=== PATIENT | female | born 1995 ===

== ENCOUNTER 2017-12-15 09:53 | Inpatient (IN) | payer BC ==
[2017-12-15] MEDS ORDERED: Sodium Chloride 0.9% 1,000 ML IV STA ×2 (10:23→17:16)
[2017-12-15 10:53] LABS: BASO # 0.03 K/mm3 (0.0-2.0); BASO % 0.4 % (0.0-3.0); EOS # 0.1 (0.0-0.7); EOS % 0.9 % (1.5-5.0); GRAN # 3.89 (1.4-6.5); HEMOGLOBIN 13.3 g/dL (12.0-16.0); LYMPH # 2.6 (1.2-3.4); LYMPH % 37.5 % (22.0-35.0); MEAN CELL VOLUME 88.2 fl (80.0-105.0); MEAN CORPUSCULAR HEMOGLOBIN 30.9 pg (25.0-35.0); MEAN PLATELET VOLUME 9.7 fl (7.0-11.0); MONO # 0.4 (0.1-0.6); MONO % 5.2 % (1.0-6.0); RBC 4.31 10^6/uL (3.5-6.1); RED CELL DISTRIBUTION WIDTH 11.9 % (11.5-14.5); WHITE BLOOD COUNT 6.9 10^3/ul (4.5-11.0)
[2017-12-15 10:56] LABS: URINE BILIRUBIN NEGATIVE (NEGATIVE); URINE BLOOD NEGATIVE (NEGATIVE); URINE GLUCOSE (UA) NEGATIVE (NEGATIVE); URINE LEUKOCYTE ESTERASE NEGATIVE Leu/uL (NEGATIVE); URINE PROTEIN NEGATIVE mg/dL (<30 mg/dL); URINE UROBILINOGEN 0.2 E.U./dL (<1 E.U./dL)
--- NOTE | 2017-12-15 10:57 | ED PDOC ---
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 pt states for the past 2 months she has been having on and off chest pain and pain to the right shoulder. pt c/o subjective fevers, sore throat, pain with swallowing, shortness of breath, and total body pain. pt states she was seen by a doctor 2 weeks ago and was supposed to have a bunch of tests done but the patient states that due to insurance issues the patient didnt have the tests. pt states she took advil 2 days ago. pt states she hasnt wanted to get out of bed, states she feels desperate. pt states she hasnt been sleeping well. no other complaints. Time/Duration: > month (2 months) Symptom Onset: Gradual Symptom Course: Unchanged Quality: Aching Severity Level: Mild Past Medical History - Provider Review Nursing Documentation Reviewed: Yes - Travel History Have you recently traveled outside [place] w/in the past 3 mons?: No - Infectious Disease Hx of Infectious Diseases: None - Psychiatric Hx Substance Use: No - Surgical History Hx Appendectomy: Yes - Anesthesia Hx Anesthesia: No Hx Anesthesia Reactions: No Hx Malignant Hyperthermia: No Family/Social History - Physician Review Nursing Documentation Reviewed: Yes Family/Social History: Unknown Family HX Smoking Status: Never Smoked Hx Alcohol Use: Yes Frequency of alcohol use: Socially Hx Substance Use: No Allergies/Home Meds Allergies/Adverse Reactions: Allergies No Known Allergies Allergy (Verified 12/15/17 10:06) Home Medications: Home Meds Medication Instructions Recorded Confirmed No Known Home Med 12/15/17 12/15/17 Review of Systems - Review of Systems Constitutional: Fatigue, Fevers ENT: Sore Throat, Sinus Congestion Respiratory: SOB, Cough Cardiovascular: Chest Pain. absent: Palpitations Gastrointestinal: Abdominal Pain. absent: Constipation, Diarrhea, Nausea, Vomiting Genitourinary Female: absent: Dysuria, Frequency, Hematuria Musculoskeletal: Arthralgias, Back Pain, Neck Pain Skin: absent: Rash, Pruritis Neurological: absent: Headache, Dizziness Psychiatric: absent: Anxiety, Depression, Suicidal Ideation Physical Exam Vital Signs Reviewed: Yes Vital Signs Temp Pulse Resp BP Pulse Ox 12/15/17 18:28 93 H 20 123/71 100 12/15/17 17:15 97.9 F 90 18 128/64 97 12/15/17 12:59 74 16 122/64 100 12/15/17 10:01 97.8 F 93 H 20 129/74 97 12/15/17 09:54 98 F 94 H 18 129/74 100 Temperature: Afebrile Blood Pressure: Normal Pulse: Regular Respiratory Rate: Normal Appearance: Positive for: Well-Appearing, Non-Toxic, Comfortable Pain Distress: None Mental Status: Positive for: Alert and Oriented X 3 - Systems Exam Head: Present: Atraumatic Pupils: Present: PERRL Extroacular Muscles: Present: EOMI Conjunctiva: Present: Normal Ears: Present: Normal, NORMAL TM Mouth: Present: Moist Mucous Membranes Pharnyx: Present: Normal. No: ERYTHEMA, EXUDATE, TONSILS ENLARGED, Peritonsilar Swelling, Uvular Deviation, Muffled/Hoarse Voice Nose (External): Present: Atraumatic Nose (Internal): Present: Normal Inspection Neck: Present: Normal Range of Motion, Trachea Midline. No: Meningeal Signs, MIDLINE TENDERNESS, Paraspinal Tenderness, Lymphadenopathy Respiratory/Chest: Present: Clear to Auscultation, Good Air Exchange. No: Respiratory Distress, Accessory Muscle Use Cardiovascular: Present: Regular Rate and Rhythm, Normal S1, S2. No: Murmurs Abdomen: Present: Tenderness (minimal ruq tenderness), Normal Bowel Sounds. No : Distention, Peritoneal Signs, Rebound, Guarding Back: Present: Normal Inspection. No: CVA Tenderness, Midline Tenderness, Paraspinal Tenderness Upper Extremity: Present: Normal Inspection, Normal ROM Lower Extremity: Present: Normal Inspection, Normal ROM Neurological: Present: GCS=15, Speech Normal Skin: Present: Warm, Dry, Normal Color. No: Rashes Psychiatric: Present: Alert, Oriented x 3 Medical Decision Making ED Course and Treatment: 12/15/17 10:59 22yr old female with 2 month history of bodyaches, chest pain, shortness of breath, sore throat, right shoulder pain, right upper quadrant abdominal pain. cbc wnl cmp wnl lipase wnl d-dimer; negative rapid flu; negative rapid strep: negative cxr: wnl ekg; nsr at 83b/m no st elevations, normal axis, normal intervals. pt given NS iv bolus. Tylenol; wnl Salicylates; within normal limits Alcohol negative abdominal US: FINDINGS: LIVER: Measures 16.8 cm. Normal echogenicity of the liver parenchyma. No mass. No intrahepatic bile duct dilatation. GALLBLADDER: Unremarkable. No gallstones. COMMON BILE DUCT: Measures 4.2 mm. No stones. No dilatation. PANCREAS: Unremarkable as visualized. No mass. No ductal dilatation. RIGHT KIDNEY: Measures 10.4 x 4 x 3.9cm. Normal echogenicity. No calculus, mass, or hydronephrosis. LEFT KIDNEY: Measures 10.7 x 5 x 5.7cm. Normal echogenicity. No calculus, mass, or hydronephrosis. SPLEEN: Normal in size and contour. No mass. AORTA: No aneurysmal dilatation. IVC: Unremarkable. OTHER FINDINGS: None. IMPRESSION: Mild hepatomegaly. No evidence of cholelithiasis or cholecystitis. UA; wnl UDS: wnl lyme added. 12/15/17 12:07 pt is non toxic well appearing; no distress. all results discussed with patient in depth; pt c/o difficulty with sleeping, feeling like she doesnt want to get up; states she feels like this at time. became tearful in er. will get PES fabio. PES saw patient at bedside; pt relayed to PES screener luis felipe that she has HX of uterine cancer and prior chemotherapy in [facility] for which she didnt tell myself or triage nurse. pt now shows papers for outpatient CT angio/ ct chest/ct abd/pelvis. will add on CT angio chest and abdomen and pelvis with IV contrast to r/o obstruction/abdominal lesion. 12/15/17 17:04 pt seen and evaluated by dr. sena; 12/15/17 18:[address] andujar; will admit patient to med/surg for intractable abdominal pain hx of Cancer/molar . pt was seen and evaluated by dr. andujar at bedside. ct angio chest; FINDINGS: Pulmonary arteries: Unremarkable. No pulmonary embolism. Aorta: No acute findings. No thoracic aortic aneurysm. Lungs: Unremarkable. No mass. No consolidation. Pleural space: Unremarkable. No significant effusion. No pneumothorax. Heart: Unremarkable. No cardiomegaly. No significant pericardial effusion. No evidence of RV dysfunction. Bones/joints: No acute fracture. No dislocation. Soft tissues: Unremarkable. Lymph nodes: Unremarkable. No enlarged lymph nodes. Spleen: There is accessory splenic tissue. IMPRESSION: No acute findings. ct abd/pelvis with IV contrast; FINDINGS: Lower thorax: No acute findings. ABDOMEN: Liver: Unremarkable. No mass. Gallbladder and bile ducts: Unremarkable. No calcified stones. No ductal dilation. Pancreas: Unremarkable. No mass. No ductal dilation. Spleen: There is accessory splenic tissue. Adrenals: Unremarkable. No mass. Kidneys and ureters: Unremarkable. No solid mass. No hydronephrosis. Stomach and bowel: There are fluid-filled tubular structures in the lower abdomen/pelvis which may represent mildly dilated fluid-filled loops of small bowel but evaluation is limited without oral contrast. In this patient with a concern for bowel obstruction, followup oral contrast CT scan is recommended. No mucosal thickening. Appendix: No findings to suggest acute appendicitis. PELVIS: Bladder: Unremarkable. No mass. Reproductive: Unremarkable as visualized. ABDOMEN and PELVIS: Intraperitoneal space: Unremarkable. No free air. No significant fluid collection. Bones/joints: No acute fracture. No dislocation. Soft tissues: Unremarkable. Vasculature: Unremarkable. No abdominal aortic aneurysm. Lymph nodes: Unremarkable. No enlarged lymph nodes. IMPRESSION: There are fluid-filled tubular structures in the lower abdomen/pelvis which likely represent mildly dilated fluid-filled loops of small bowel but evaluation is limited without oral contrast. In this patient with a concern for bowel obstruction, followup oral contrast CT scan is recommended. ct results discussed with dr. andujar; will consult Surgery for evaluation; will consult dr. hays. case discussed in depth with president and ceo dr. kaley Wei; he will seen patient at beside. impression; generalized weakness, fatigue, shortness of breath, intractable pain , hx of Cancer, abnormal ct, r/o bowel obstruction admit med/surg observational status with hem/onc and surgical consult. - Lab Interpretations Lab Results: 12/15/17 10:30 12/15/17 10:30 Lab Results 12/15/17 12:00: Urine Opiates Screen Negative, Urine Methadone Screen Negative, Ur Barbiturates Screen Negative, Ur Phencyclidine Scrn Negative, Ur Amphetamines Screen Negative, U Benzodiazepines Scrn Negative, U Oth Cocaine Metabols Negative, U Cannabinoids Screen Negative 12/15/17 11:30: D-Dimer, Quantitative < 200 12/15/17 11:07: Salicylates < 1 L, Acetaminophen < 10.0 L 12/15/17 10:30: Alcohol, Quantitative < 10 12/15/17 10:30: Influenza Typ A,B (EIA) Negative for flu a/b, Grp A Beta Strep Ag Negative 12/15/17 10:30: WBC 6.9, RBC 4.31, Hgb 13.3, Hct 38.0, MCV 88.2, MCH 30.9, MCHC 35.0, RDW 11.9, Plt Count 271, MPV 9.7, Gran % 56.0, Lymph % (Auto) 37.5 H, Crane % (Auto) 5.2, Eos % (Auto) 0.9 L, Baso % (Auto) 0.4, Gran # 3.89, Lymph # ( Auto) 2.6, Crane # (Auto) 0.4, Eos # (Auto) 0.1, Baso # (Auto) 0.03 12/15/17 10:30: Sodium 141, Potassium 4.3, Chloride 105, Carbon Dioxide 23, Anion Gap 18, BUN 12, Creatinine 0.6 L, Est GFR ( Amer) > 60, Est GFR ( Non-Af Amer) > 60, Random Glucose 89, Calcium 10.0, Total Bilirubin 0.8, AST 34 , ALT 35, Alkaline Phosphatase 88, Total Protein 8.2, Albumin 4.8, Globulin 3.4 , Albumin/Globulin Ratio 1.4, Lipase 62 12/15/17 10:30: Urine Color Yellow, Urine Appearance Clear, Urine pH 6.0, Ur Specific Hamilton 1.025, Urine Protein Negative, Urine Glucose (UA) Negative, Urine Ketones Negative, Urine Blood Negative, Urine Nitrate Negative, Urine Bilirubin Negative, Urine Urobilinogen 0.2, Ur Leukocyte Esterase Negative - RAD Interpretation Radiology Orders: 12/15/17 10:22 CHEST ONE VIEW [RAD] Stat 12/15/17 10:25 ABDOMEN COMPLETE [US] Stat 12/15/17 14:16 ABD & PELVIS IV CONTRAST ONLY [CT] Stat ANGIO CHEST PE PROTOCOL [CT] Stat 12/15/17 17:04 SHOULDER RIGHT [RAD] Stat - Medication Orders Current Medication Orders: Discontinued Medications Sodium Chloride (Sodium Chloride 0.9%) 1,000 mls @ 999 mls/hr IV .Q1H1M STA Stop: 12/15/17 11:23 Last Admin: 12/15/17 10:38 Dose: 999 mls/hr eMAR Start Stop Document 12/15/17 10:38 SRE (Rec: 12/15/17 10:38 SRE [id number]) Intravenous Solution Start Date 12/15/17 Start Time 10:38 End Date 12/15/17 End time 11:40 Total Infusion Time 62 Sodium Chloride (Sodium Chloride 0.9%) 1,000 mls @ 999 mls/hr IV .Q1H1M STA Stop: 12/15/17 18:16 Last Admin: 12/15/17 17:50 Dose: 999 mls/hr eMAR Start Stop Document 12/15/17 17:50 SRE (Rec: 12/15/17 17:50 SRE [id number]) Intravenous Solution Start Date 12/15/17 Start Time 17:50 End Date 12/15/17 End time 18:50 Total Infusion Time 60 Ketorolac Tromethamine (Toradol) 30 mg IVP STAT STA Stop: 12/15/17 17:10 Last Admin: 12/15/17 17:50 Dose: 30 mg MAR Pain Assessment Document 12/15/17 17:50 SRE (Rec: 12/15/17 17:51 SRE [id number]) Pain Reassessment Is this a pain reassessment? Yes Sleep Is patient sleeping during reassessment? No Presence of Pain Presence of Pain Yes Pain Scale Used Pain Scale Used Numeric Location Left, Right or Bilateral Right Pain Location Body Site Shoulder Description Description Intermittent IVP Administration Document 12/15/17 17:50 SRE (Rec: 12/15/17 17:51 SRE [id number]) Charges for Administration # of IVP Administrations 1 Morphine Sulfate (Morphine) 4 mg IVP STAT STA Stop: 12/15/17 17:10 Last Admin: 12/15/17 17:51 Dose: 4 mg MAR Pain Assessment Document 12/15/17 17:51 SRE (Rec: 12/15/17 17:51 SRE [id number]) Pain Reassessment Is this a pain reassessment? Yes Sleep Is patient sleeping during reassessment? No Presence of Pain Presence of Pain Yes Pain Scale Used Pain Scale Used Numeric Location Left, Right or Bilateral Right Description Description Intermittent IVP Administration Document 12/15/17 17:51 SRE (Rec: 12/15/17 17:51 SRE [id number]) Charges for Administration # of IVP Administrations 1 Disposition/Present on Arrival - Present on Arrival Any Indicators Present on Arrival: No History of DVT/PE: No History of Uncontrolled Diabetes: No Urinary Catheter: No History of Decub. Ulcer: No History Surgical Site Infection Following: None - Disposition Have Diagnosis and Disposition been Completed?: Yes Diagnosis: Intractable pain, Shortness of breath, Hx of malignant neoplasm, Abdominal pain Disposition: HOSPITALIZED Disposition Time: 18:30 Patient Plan: Observation Patient Problems: Current Active Problems Problem Status Onset Hx of malignant neoplasm Acute Intractable pain Acute Shortness of breath Acute Condition: FAIR
[2017-12-15 10:59] LABS: URINE APPEARANCE CLEAR (CLEAR); URINE COLOR YELLOW (YELLOW)
[2017-12-15 11:03] LABS: ALB/GLOB RATIO 1.4 (1.1-1.8); ALBUMIN 4.8 g/dL (3.0-4.8); ALT/SGPT 35 U/L (7-56); AST/SGOT 34 U/L (14-36); BLOOD UREA NITROGEN 12 mg/dL (7-21); GFR AFRICAN-AMERICAN > 60; GFR NON-AFRICAN AMERICAN > 60; LIPASE 62 U/L (23-300)
[2017-12-15 11:17] LABS: INFLUENZA A B NEGATIVE FOR FLU A/B (NEGATIVE)
[2017-12-15 11:21] LABS: ACETAMINOPHEN < 10.0 ug/ml (10.0-20.0); SALICYLATE < 1 mg/dL (2.0-20.0)
--- NOTE | 2017-12-15 11:34 | US ---
HISTORY: abd pain ruq COMPARISON: None. TECHNIQUE: Sonographic evaluation of the abdomen. FINDINGS: LIVER: Measures 16.8 cm. Normal echogenicity of the liver parenchyma. No mass. No intrahepatic bile duct dilatation. GALLBLADDER: Unremarkable. No gallstones. COMMON BILE DUCT: Measures 4.2 mm. No stones. No dilatation. PANCREAS: Unremarkable as visualized. No mass. No ductal dilatation. RIGHT KIDNEY: Measures 10.4 x 4 x 3.9cm. Normal echogenicity. No calculus, mass, or hydronephrosis. LEFT KIDNEY: Measures 10.7 x 5 x 5.7cm. Normal echogenicity. No calculus, mass, or hydronephrosis. SPLEEN: Normal in size and contour. No mass. AORTA: No aneurysmal dilatation. IVC: Unremarkable. OTHER FINDINGS: None. IMPRESSION: Mild hepatomegaly. No evidence of cholelithiasis or cholecystitis.
[2017-12-15 13:02] LABS: BARBITURATES, UR NEGATIVE (NEGATIVE); BENZODIAZEPINES, UR NEGATIVE (NEGATIVE); OPIATES, UR NEGATIVE (NEGATIVE); PHENCYCLIDINE, UR NEGATIVE (NEGATIVE)
[2017-12-15] MEDS ORDERED: Iohexol 350 MG/100 ML VIAL ONE (14:17)
--- NOTE | 2017-12-15 17:08 | RAD ---
PROCEDURE: CHEST RADIOGRAPH, 1 VIEW HISTORY: SOB COMPARISON: None available. FINDINGS: LUNGS: No evidence of focal infiltrate or consolidation in the lungs. PLEURA: No pneumothorax or pleural fluid seen. CARDIOVASCULAR: Normal. OSSEOUS STRUCTURES: No significant abnormalities. VISUALIZED UPPER ABDOMEN: Normal. OTHER FINDINGS: None. IMPRESSION: No active disease.
[2017-12-15] MEDS ORDERED: Morphine 4 mg/ml ISec IVP STA (17:09)
--- NOTE | 2017-12-15 19:04 | RAD ---
PROCEDURE: Radiographs of the Right Shoulder HISTORY: right shoulder pain COMPARISON: No prior. FINDINGS: BONES: Normal. No fracture. JOINTS: Normal. Glenohumeral and acromioclavicular joints preserved. No osteoarthritis. SOFT TISSUES: Normal. OTHER FINDINGS: None. IMPRESSION: Normal radiographs of the right shoulder.
--- NOTE | 2017-12-15 19:31 | CT ---
EXAM: CT Angiography Chest With Intravenous Contrast CLINICAL HISTORY: 22 years old, female; Signs and symptoms; Shortness of breath; Additional info: R/O pe TECHNIQUE: Axial computed tomographic angiography images of the chest with intravenous contrast using pulmonary embolism protocol. All CT scans at this facility use one or more dose reduction techniques, viz.: automated exposure control; ma/kV adjustment per patient size (including targeted exams where dose is matched to indication; i.e. head); or iterative reconstruction technique. MIP reconstructed images were created and reviewed. Coronal and sagittal reformatted images were created and reviewed. CONTRAST: 142 mL of omni 350 administered intravenously. COMPARISON: DX - CHEST ONE VIEW 2017-12-15 11:09 FINDINGS: Pulmonary arteries: Unremarkable. No pulmonary embolism. Aorta: No acute findings. No thoracic aortic aneurysm. Lungs: Unremarkable. No mass. No consolidation. Pleural space: Unremarkable. No significant effusion. No pneumothorax. Heart: Unremarkable. No cardiomegaly. No significant pericardial effusion. No evidence of RV dysfunction. Bones/joints: No acute fracture. No dislocation. Soft tissues: Unremarkable. Lymph nodes: Unremarkable. No enlarged lymph nodes. Spleen: There is accessory splenic tissue. IMPRESSION: No acute findings.
--- NOTE | 2017-12-15 19:37 | CT ---
EXAM: CT Abdomen and Pelvis With Intravenous Contrast CLINICAL HISTORY: 22 years old, female; Pain; Abdominal pain; Additional info: Abd pain/ obstruction vs abdominal lesions hxof ca TECHNIQUE: Axial computed tomography images of the abdomen and pelvis with intravenous contrast. All CT scans at this facility use one or more dose reduction techniques, viz.: automated exposure control; ma/kV adjustment per patient size (including targeted exams where dose is matched to indication; i.e. head); or iterative reconstruction technique. Coronal and sagittal reformatted images were created and reviewed. CONTRAST: 142 mL of omni 350 administered intravenously. COMPARISON: US - ABDOMEN COMPLETE 2017-12-15 10:47 FINDINGS: Lower thorax: No acute findings. ABDOMEN: Liver: Unremarkable. No mass. Gallbladder and bile ducts: Unremarkable. No calcified stones. No ductal dilation. Pancreas: Unremarkable. No mass. No ductal dilation. Spleen: There is accessory splenic tissue. Adrenals: Unremarkable. No mass. Kidneys and ureters: Unremarkable. No solid mass. No hydronephrosis. Stomach and bowel: There are fluid-filled tubular structures in the lower abdomen/pelvis which may represent mildly dilated fluid-filled loops of small bowel but evaluation is limited without oral contrast. In this patient with a concern for bowel obstruction, followup oral contrast CT scan is recommended. No mucosal thickening. Appendix: No findings to suggest acute appendicitis. PELVIS: Bladder: Unremarkable. No mass. Reproductive: Unremarkable as visualized. ABDOMEN and PELVIS: Intraperitoneal space: Unremarkable. No free air. No significant fluid collection. Bones/joints: No acute fracture. No dislocation. Soft tissues: Unremarkable. Vasculature: Unremarkable. No abdominal aortic aneurysm. Lymph nodes: Unremarkable. No enlarged lymph nodes. IMPRESSION: There are fluid-filled tubular structures in the lower abdomen/pelvis which likely represent mildly dilated fluid-filled loops of small bowel but evaluation is limited without oral contrast. In this patient with a concern for bowel obstruction, followup oral contrast CT scan is recommended.
--- NOTE | 2017-12-15 21:04 | CP.PCM.CON ---
History of Present Illness - History of Present Illness History of Present Illness: Surgery: Dr. 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 She has complaints of intermittent R shoulder pain and chest pain, she reports intermittent SOB unrelated to activity, she reports non-bloody non-productive cough, she has subjective fevers and chills. She reports having epigastric abd pain unrelated to diet, pain is accompanied by nausea no vomiting, and decreased appetite. She denies diarrhea and is having regular non-bloody BM. She does report unintentional 5lb weight loss over the past few months. She also reports pain in her L arm 2/2 implantable control that per pt has and needs to be removed. CT done in ED showed mildly dilated loops of bowel concerning for SBO. PMH: molar , uterine CA PSH: appendectomy Meds: MAR reviewed NKDA Social: + ETOH, no tobacco drugs Fhx: Non-contributory Review of Systems - Review of Systems All systems: reviewed and no additional remarkable complaints except (HPI) Past Patient History - Infectious Disease Hx of Infectious Diseases: None - Past Social History Smoking Status: Never Smoked - HEMATOLOGICAL/ONCOLOGICAL Hx Cancer: Yes (in remission) - PSYCHIATRIC Hx Substance Use: No - SURGICAL HISTORY Hx Appendectomy: Yes - ANESTHESIA Hx Anesthesia: No Hx Anesthesia Reactions: No Hx Malignant Hyperthermia: No Meds Allergies/Adverse Reactions: Allergies Allergy/AdvReac Type Severity Reaction Status Date / Time No Known Allergies Allergy Verified 12/15/17 10:06 Physical Exam - Constitutional Appears: Non-toxic, No Acute Distress - Head Exam Head Exam: ATRAUMATIC, NORMOCEPHALIC - Eye Exam Eye Exam: EOMI. absent: Scleral icterus - ENT Exam ENT Exam: Mucous Membranes Moist - Respiratory Exam Respiratory Exam: NORMAL BREATHING PATTERN. absent: Accessory Muscle Use, Respiratory Distress - GI/Abdominal Exam GI & Abdominal Exam: Soft, Tenderness (epigastric). absent: Distended, Firm, Guarding, Hernia, Rebound, Rigid - Extremities Exam Extremities exam: Negative for: calf tenderness, pedal pulses present - Neurological Exam Neurological exam: Alert, Oriented x3 - Psychiatric Exam Psychiatric exam: Normal Affect, Normal Mood - Skin Skin Exam: Dry, Intact, Warm Results - Vital Signs Recent Vital Signs: Last Vital Signs Temp 97.9 F 12/15/17 17:15 Pulse 93 H 12/15/17 18:28 Resp 20 12/15/17 18:28 BP 123/71 12/15/17 18:28 Pulse Ox 100 12/15/17 18:28 - Labs Result Diagrams: 12/15/17 10:30 12/15/17 10:30 - Imaging and Cardiology CT scan - abdomen Status: Image reviewed by me, Report reviewed by me US - abdomen Status: Image reviewed by me, Report reviewed by me Assessment & Plan - Assessment and Plan (Free Text) Assessment: 22F w. abd pain, unlikely SBO, r/o gastritis -Recommend GI consult -regular diet -Pepcid -zofran -serial abd exams -Recommend ELECTRONICS DESIGN ENGINEER consult to address LUE control implant -will d/w attending Sanjuana PGY3
[2017-12-16 05:29] VITALS: BMI 23.3
[2017-12-16] MEDS ORDERED: Docusate-Senna 50 mg-8.6 mg Tab PO PRN (07:21)
--- NOTE | 2017-12-16 07:26 | CP.PCM.PN ---
Subjective - Date & Time of Evaluation Date of Evaluation: 12/16/17 Time of Evaluation: 07:23 - Subjective Subjective: Surgery: Dr. Garcia Patient reports pain improved. She denies f/c/n/v. She denies bowel movement. She is tolerating diet. Objective - Vital Signs/Intake and Output Vital Signs (last 24 hours): Temp Pulse Resp BP Pulse Ox 98.9 F 90 20 114/70 100 12/15/17 20:00 12/15/17 20:00 12/15/17 20:00 12/15/17 20:00 12/15/17 18:28 Intake and Output: 12/16/17 12/16/17 06:59 18:59 Intake Total 480 Balance 480 - Medications Medications: Current Medications Acetaminophen (Tylenol 325mg Tab) 650 mg PO Q6H PRN PRN Reason: Pain, Mild (1-3) Famotidine (Pepcid) 20 mg PO 1000,2200 KIM Last Admin: 12/15/17 23:36 Dose: 20 mg Ibuprofen (Motrin Tab) 600 mg PO Q6H PRN PRN Reason: Pain, moderate (4-7) Pantoprazole Sodium (Protonix Ec Tab) 40 mg PO ACB KIM Senna/Docusate Sodium (Senokot S 50 Mg-8.6 Mg) 1 tab PO DAILY PRN PRN Reason: Constipation - Constitutional Appears: Non-toxic, No Acute Distress - Head Exam Head Exam: ATRAUMATIC, NORMOCEPHALIC - Eye Exam Eye Exam: EOMI, Normal appearance - ENT Exam ENT Exam: Mucous Membranes Moist - Respiratory Exam Respiratory Exam: NORMAL BREATHING PATTERN. absent: Respiratory Distress - Cardiovascular Exam Cardiovascular Exam: REGULAR RHYTHM. absent: Tachycardia - GI/Abdominal Exam GI & Abdominal Exam: Soft. absent: Distended, Guarding, Tenderness, Rebound - Extremities Exam Extremities Exam: Normal Inspection. absent: Calf Tenderness - Neurological Exam Neurological Exam: Alert, Awake - Psychiatric Exam Psychiatric exam: Normal Affect, Normal Mood - Skin Skin Exam: Dry, Normal Color, Warm Assessment and Plan - Assessment and Plan (Free Text) Assessment: 22 y/o female w/ epigastric abdominal pain, improved Plan: -exam and imaging unremarkable, may consider NON DESTRUCTIVE TESTING SUPERVISOR evaluation or transvaginal U/S -cont reg diet -pepcid po for possible gastritis -no surgical intervention required at this time -reconsult as needed -further recs per Dr. Garcia AKite PGY3
[2017-12-16] MEDS: Pantoprazole 40 mg EC Tab PO SCH ×2 (07:39→10:38)
--- NOTE | 2017-12-16 10:25 | CARD ---
APPROVED REPORT EKG Measurement Heart [id number] <Conclusion> Normal sinus rhythm Normal ECG
[2017-12-16] MEDS: Enoxaparin 40 mg Syringe SC SCH (16:10)
[2017-12-16] MEDS: Piperacillin/Tazobact 3.375 gm 100 ML IVPB SCH (21:37)
--- NOTE | 2017-12-17 01:36 | PN ---
DATE: SUBJECTIVE: The patient is comfortable, no distress. She is still complaining of right shoulder pain; otherwise, no chest pain, no shortness of breath. She seems very comfortable. PHYSICAL EXAMINATION: VITAL SIGNS: Temperature 99.4, heart rate 81, blood pressure 103/66, respirations 18, saturation 99% on room air. HEAD AND NECK: Normal. No JVD. No thyromegaly. CHEST: Clear. Good air entry. CARDIAC: First sound and second sound normal. ABDOMEN: Soft and nontender. EXTREMITIES: No edema. NEUROLOGIC: Normal. IMPRESSION: 1. Questionable small bowel obstructions as per CAT scan. The patient clinically seems stable. We will get surgical consult to look at the patient and the CT abdomen, and we will follow their recommendations as the patient did mention she has some abdominal pain and discomforts, and we will follow their recommendations and we will see how she will do. 2. History of choriocarcinoma. Beta human chorionic gonadotropin ordered and came back negative. We will get Dr. Gardner, Oncology consult. We will get Obstetrical and Gynecological consultation. 3. The patient had low-grade fever, unclear etiology, we will get Infectious Disease consult to look at this and help us with this. At this time, continue IV fluid, Tylenol p.r.n. for pain. Dr. Ravi for her right shoulder pain, may be an injection would help. At this time, continue current therapy. If everything is fine, we will discharge the patient home after evaluation by other consultants. CURRENT MEDICATIONS: Right now, Motrin 600 p.o. q. 6 hours p.r.n., Lovenox 40 subcu daily, Pepcid 20 p.o. b.i.d., Protonix 40 once a day, Tylenol and Senokot p.r.n. Dez Lambert MD
--- NOTE | 2017-12-17 04:06 | CON ---
DATE:12/16/17 Patient 27yo female is from [place], does not speak Austrian. She is in room 574, bed 2. Was admitted on 12/15/2017 for multiple pains in her total body, basically the knee joints, arm, elbows and shoulders, right worse than the left. Has significant past history that she had 2 years ago choriocarcinoma in her country [place] and was on chemotherapy for 9 months, came to [place], does not speak Austrian at all, and she points to her knees, arms, elbows and shoulders with pain. X-ray of the shoulder on the right side shows normal architecture and normal bones. No osteopenia. Chest x-ray also reported no significant findings. So with the joint pains and no signs of inflammation, the white count is not elevated and the electrolytes are within normal limits, renal function is normal, urine is negative, we will test her rheumatoid arthritis, Lyme disease and inflammatory markers like C-reactive protein and sed rate, and we will see what we could do. There is no lymphadenopathy. Her joints move well. No evidence of effusion. No spine pain. So I will await for the blood test to come back, see if this causes anything. Right now, she has fibromyalgia type of symptoms and we will await until we get some more confirmatory tests. Rogers Ravi DO [facility]
[2017-12-17] MEDS: Piperacillin/Tazobact 3.375 gm 100 ML IVPB SCH ×3 (05:51→12:40)
[2017-12-17] MEDS: Pantoprazole 40 mg EC Tab PO SCH (06:30)
--- NOTE | 2017-12-17 08:26 | HP ---
REASON FOR ADMISSION: Generalized weakness and shoulder pain. HISTORY OF PRESENT ILLNESS: The patient is Irish speaking, but I got the history from the nurse practitioner as well as from the patient using phone translation. According to the patient, she feels very weak and she got pain in her chest and in the right shoulder that has been there for few days and she seems very, very anxious. 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 She denies any nausea, vomiting, diarrhea or any other complaints. She does not move her bowels. There is no fever or chills. So, the patient came to the ER for evaluation. PAST MEDICAL HISTORY: As I mentioned, choriocarcinoma treated a year ago in her country in [place], and also she has been seen in [facility] in [place], and was treated and she received all her treatment. SOCIAL HISTORY: She is Irish speaking. She never smokes. She does occasionally drink alcohol. No substance abuse or substance use. HOME MEDICATIONS: None. ALLERGIES: NONE. REVIEW OF SYSTEMS: As mentioned in the present illness; otherwise, the patient is stable, just right shoulder pain and general weakness. Otherwise, she feels fine. PHYSICAL EXAMINATION: VITAL SIGNS: Temperature 97.8, heart rate 93, blood pressure 129/74, respirations 20, saturation 97% on room air. HEAD AND NECK: Normal. No JVD. No thyromegaly. CHEST: Clear. Good air entry. CARDIAC: First sound and second sound normal. ABDOMEN: Soft, nontender. EXTREMITIES: No edema. NEUROLOGICAL: Normal. Right shoulder examination, there is pain with moving her right shoulder in any directions. LABORATORY DATA: White count 6.9, hemoglobin is 13.3, hematocrit 38, platelets 271. Chemistry: Sodium 141, potassium 4.3, chloride 105, bicarb 23, BUN 12, creatinine 0.6. Liver function test is normal. The patient also had urinalysis, which was negative, and she had a urine drug screen, which is negative, and she has a serology for influenza A and B and is negative, group A and B streptococcus negative. IMPRESSION: This is a 22-year-old female who came in with the symptoms unclear as the patient is not a good historian, but she does have generalized weakness and she is very anxious about her past medical history of choriocarcinoma recurrence she is not sure. Also she complained of right shoulder pain. The patient has CT abdomen and pelvis with IV contrast, CT chest with IV contrast, there is no evidence of recurrence, no PE, and chest x-ray and also right shoulder x-ray was reported negative. PLAN: 1. Generalized weakness, etiology, we will rule out any recurrent cancer. We will get Dr. Gardner to evaluate that. Her CT seems negative, no evidence of recurrent cancer. We will get repeat and we will see how she does. We will see the results. 2. Shoulder pain. We will get x-ray of shoulder and give her Toradol, she received Toradol shot . We will give her Tylenol p.r.n. and Motrin p.r.n. in addition to Protonix. 3. We will discuss with the other consultants and we will possibly consider Gynecology consultation to be done as outpatient. We will observe the patient and we will follow up clinically. We will discuss with oncologist. Dez Lambert MD
[2017-12-17] MEDS: Enoxaparin 40 mg Syringe SC SCH (09:38)
[2017-12-17 09:53] VITALS: RESP 18
--- NOTE | 2017-12-17 12:17 | CP.PCM.CON ---
History of Present Illness - History of Present Illness History of Present Illness: Heme-onc Consult Note, Mao Barnes DO, PGY-2 IM This is a 22yo [place] F with PMH of molar and uterine CA that was s /p vaginal mass resection and 9-month chemo regimen (2 yrs prior, in [place], unsure of what chemo she received) who presents with generalized pains , multiple asymmetric joint pains (i.e. R shoulder, left knee, R plantar surface of foot), shortness of breath unrelated to exertion, and chest pain for several weeks. Patient initially was screened by PES, but at that point reported her uterine cancer hx, and was admitted to medical service for further eval. Heme-onc was consulted for hx of uterine cancer. At bedside, patient continues to complain of same generalized malaise, lack of appetite, and joint pains. Denies any recent breakthrough vaginal bleeding, and has not had her period for > 2 yrs, prior to her surgery and chemo, as she has a (now as per pt) contraceptive implant in her left arm, and has not had any periods since it was placed (pt unsure what brand/type of device was placed). Denies emesis, productive cough, syncopal episodes, loss of sensation, unintentional weight loss (reports ~5 lb weight loss, but then admits she has been eating poorly for > 2 weeks due to lack of appetite), or night sweats. Chest pain and shortness of breath non-exertional, but not appreciated at time of exam, and chest pain is not reproducible. Patient does appear grossly anxious throughout exam. All other ROS in 12-system review negative. PMH: as above PSH: vaginal mass (possibly uterine Ca mass) resection (2016), contraceptive implant into left arm (2014) Fam Hx: diabetes in grandparents and an aunt, denies in first degree relatives, denies any cancer hx in family Soc Hx: Setswana speaking, denies tobacco/illicits/IVDA, admits to social EtOH PMD: None Review of Systems - Review of Systems All systems: reviewed and no additional remarkable complaints except (as per HPI ) Past Patient History - Infectious Disease Hx of Infectious Diseases: None - Past Social History Smoking Status: Never Smoked - HEMATOLOGICAL/ONCOLOGICAL Hx Cancer: Yes (in remission) Other/Comment: uterine ca treated in [facility] - MUSCULOSKELETAL/RHEUMATOLOGICAL Hx Falls: No - PSYCHIATRIC Hx Substance Use: No - SURGICAL HISTORY Hx Appendectomy: Yes - ANESTHESIA Hx Anesthesia: No Hx Anesthesia Reactions: No Hx Malignant Hyperthermia: No Meds Allergies/Adverse Reactions: Allergies Allergy/AdvReac Type Severity Reaction Status Date / Time No Known Allergies Allergy Verified 12/15/17 10:06 - Medications Medications: Current Medications Acetaminophen (Tylenol 325mg Tab) 650 mg PO Q6H PRN PRN Reason: Pain, Mild (1-3) Last Admin: 12/16/17 10:37 Dose: 650 mg Doxycycline Hyclate (Doryx) 100 mg PO Q12 KIM PRN Reason: Protocol Enoxaparin Sodium (Lovenox) 40 mg SC DAILY KIM PRN Reason: Protocol Last Admin: 12/17/17 09:38 Dose: 40 mg Famotidine (Pepcid) 20 mg PO 1000,2200 KIM Last Admin: 12/17/17 09:38 Dose: 20 mg Doxycycline Hyclate 100 mg/ (Sodium Chloride) 100 mls @ 100 mls/hr IVPB Q12 KIM PRN Reason: Protocol Stop: 12/25/17 22:01 Last Admin: 12/17/17 09:38 Dose: Not Given Piperacillin Sod/Tazobactam Sod (Zosyn 3.375 In Ns 100ml) 100 mls @ 200 mls/hr IVPB Q6 KIM PRN Reason: Protocol Stop: 12/25/17 20:42 Last Admin: 12/17/17 05:51 Dose: 200 mls/hr Ibuprofen (Motrin Tab) 600 mg PO Q6H PRN PRN Reason: Pain, moderate (4-7) Last Admin: 12/17/17 09:42 Dose: 600 mg Pantoprazole Sodium (Protonix Ec Tab) 40 mg PO ACB KIM Last Admin: 12/17/17 06:30 Dose: 40 mg Senna/Docusate Sodium (Senokot S 50 Mg-8.6 Mg) 1 tab PO DAILY PRN PRN Reason: Constipation Physical Exam - Constitutional Appears: Non-toxic, No Acute Distress, Other (anxious) - Head Exam Head Exam: ATRAUMATIC, NORMAL INSPECTION, NORMOCEPHALIC - Eye Exam Eye Exam: EOMI, Normal appearance. absent: Conjunctival injection, Scleral icterus Pupil Exam: absent: Irregular, Unequal - ENT Exam ENT Exam: Mucous Membranes Moist - Neck Exam Neck exam: Positive for: Full Rom, Lymphadenopathy (mildly appreciable cervical chain lymphadenopathy bilaterally). Negative for: Thyromegaly - Respiratory Exam Respiratory Exam: Clear to Auscultation Bilateral, NORMAL BREATHING PATTERN. absent: Accessory Muscle Use, Chest Wall Tenderness (reports hx of chest pain, none reproducible on palpation), Decreased Breath Sounds, Rales, Rhonchi, Wheezes - Cardiovascular Exam Cardiovascular Exam: REGULAR RHYTHM, RRR, +S1, +S2. absent: Bradycardia, Tachycardia, Irregular Rhythm, JVD, +S4 - GI/Abdominal Exam GI & Abdominal Exam: Normal Bowel Sounds, Soft, Tenderness (reports diffuse tenderness, LLQ most prominent, mild bilateral CVA tenderness reports). absent : Diminished Bowel Sounds, Distended, Firm, Hyperactive Bowel Sounds, Hypoactive Bowel Sounds, Mass, Organomegaly, Pulsatile Mass, Rigid - Extremities Exam Extremities exam: Positive for: normal capillary refill, normal inspection, tenderness (reports right shoulder, left knee, and right plantar aspect of foot tenderness, worse on palpation, no palpable abnormalities appreciated), pedal pulses present. Negative for: calf tenderness, pedal edema - Back Exam Additional comments: reports bilateral mild CVA tenderness to palpation but no physical reaction appreciated with palpation - Neurological Exam Neurological exam: Alert, Oriented x3 - Psychiatric Exam Psychiatric exam: Anxious, Normal Affect - Skin Skin Exam: Dry, Intact, Normal Color, Warm Results - Vital Signs Recent Vital Signs: Last Vital Signs Temp 99.1 F 12/17/17 07:30 Pulse 87 12/17/17 07:30 Resp 18 12/17/17 07:30 BP 106/58 L 12/17/17 07:30 Pulse Ox 97 12/17/17 07:30 - Labs Result Diagrams: 12/15/17 10:30 12/15/17 10:30 Labs: Laboratory Results - last 24 hr 12/16/17 12/16/17 17:00 17:00 ESR 10 C-React Prot High Sens 1.86 Beta HCG, Quant < 2.39 Assessment & Plan - Assessment and Plan (Free Text) Assessment: This is a 22yo [place] F with PMH of molar and uterine CA that was s /p vaginal mass resection and 9-month chemo regimen (2 yrs prior, in [place], unsure of what chemo she received) who presents with generalized pains , multiple asymmetric joint pains (i.e. R shoulder, left knee, R plantar surface of foot), shortness of breath unrelated to exertion, and chest pain for several weeks. Heme-onc was consulted for hx of uterine cancer. Plan: Hx Uterine Cancer s/p resection and 9-month chemo course Hx Molar ? Anxiety Diffuse and asymmetric joint pains -No masses appreciated on CT abd/pelvis in pelvic area, pt denies any breakthrough bleeding since placement of contraceptive implant -Would recommend Ob-Arborist consult to evaluate and provide recs -Would help to obtain the type of contraceptive implant patient has, reports it is past expiry anyway so would benefit from removal and identification -B-HCG already obtained on admission, < 2.39, so unlikely new molar or mass -Ortho following for joint pains, obtaining additional workup, possible fibromyalgia Case discussed and reviewed and length with attending, Dr. Gardner
--- NOTE | 2017-12-17 14:32 | CP.PCM.CON ---
History of Present Illness - History of Present Illness History of Present Illness: 22 year old female with PMH of uterine cancer, history of molar S/P chemotherapy came in to [facility] complaining of body aches for the past 1-2 months. She has occasional abdominal pain as well but denies diarrhea, no vaginal discharge or bleeding, no nausea or vomiting, no chest pain, no SOB, no headache or dizziness, no sore throat, no rhinorrhea, no dysuria, no diarrhea. Infectious diseases consult is requested to evaluate for possible STD's. Review of Systems - Review of Systems All systems: reviewed and no additional remarkable complaints except (as per HPI ) Past Patient History - Infectious Disease Hx of Infectious Diseases: None - Past Social History Smoking Status: Never Smoked - HEMATOLOGICAL/ONCOLOGICAL Hx Cancer: Yes (in remission) Other/Comment: uterine ca treated in [facility] - MUSCULOSKELETAL/RHEUMATOLOGICAL Hx Falls: No - PSYCHIATRIC Hx Substance Use: No - SURGICAL HISTORY Hx Appendectomy: Yes - ANESTHESIA Hx Anesthesia: No Hx Anesthesia Reactions: No Hx Malignant Hyperthermia: No Meds Allergies/Adverse Reactions: Allergies Allergy/AdvReac Type Severity Reaction Status Date / Time No Known Allergies Allergy Verified 12/15/17 10:06 - Medications Medications: Current Medications Acetaminophen (Tylenol 325mg Tab) 650 mg PO Q6H PRN PRN Reason: Pain, Mild (1-3) Last Admin: 12/16/17 10:37 Dose: 650 mg Enoxaparin Sodium (Lovenox) 40 mg SC DAILY KIM PRN Reason: Protocol Last Admin: 12/16/17 16:10 Dose: 40 mg Famotidine (Pepcid) 20 mg PO 1000,2200 KIM Last Admin: 12/16/17 21:37 Dose: 20 mg Doxycycline Hyclate 100 mg/ (Sodium Chloride) 100 mls @ 100 mls/hr IVPB Q12 KIM PRN Reason: Protocol Stop: 12/25/17 22:01 Last Admin: 12/16/17 22:10 Dose: 100 mls/hr Piperacillin Sod/Tazobactam Sod (Zosyn 3.375 In Ns 100ml) 100 mls @ 200 mls/hr IVPB Q6 KIM PRN Reason: Protocol Stop: 12/25/17 20:42 Last Admin: 12/17/17 05:51 Dose: 200 mls/hr Ibuprofen (Motrin Tab) 600 mg PO Q6H PRN PRN Reason: Pain, moderate (4-7) Last Admin: 12/16/17 16:10 Dose: 600 mg Pantoprazole Sodium (Protonix Ec Tab) 40 mg PO ACB KIM Last Admin: 12/17/17 06:30 Dose: 40 mg Senna/Docusate Sodium (Senokot S 50 Mg-8.6 Mg) 1 tab PO DAILY PRN PRN Reason: Constipation Physical Exam - Constitutional Appears: Chronically Ill - Head Exam Head Exam: NORMAL INSPECTION - ENT Exam ENT Exam: Mucous Membranes Moist - Neck Exam Neck exam: Negative for: Meningismus - Respiratory Exam Respiratory Exam: Decreased Breath Sounds - Cardiovascular Exam Cardiovascular Exam: +S1, +S2 - GI/Abdominal Exam GI & Abdominal Exam: Soft. absent: Tenderness Results - Vital Signs Recent Vital Signs: Last Vital Signs Temp 98.7 F 12/16/17 22:00 Pulse 88 12/16/17 22:00 Resp 20 12/16/17 22:00 BP 110/69 12/16/17 22:00 Pulse Ox 99 12/16/17 22:00 - Labs Result Diagrams: 12/15/17 10:30 12/15/17 10:30 Labs: Laboratory Results - last 24 hr 12/16/17 12/16/17 17:00 17:00 ESR 10 Beta HCG, Quant < 2.39 Assessment & Plan - Assessment and Plan (Free Text) Plan: Assessment Abdominal pain, R/O intra-abdominal infection R/O sexually-transmitted illnesses uterine cancer history of molar S/P chemotherapy Plan Follow up blood cx, urine cx, urine GC, rapid HIV test, RPR; started Zosyn and Doxycycline and will monitor clinically
[2017-12-17 16:12] VITALS: BP 114/65; PULSE 90; TEMP 99.2; O2SAT 99
[2017-12-18 17:29] LABS: LYME IGG NEGATIVE (NEGATIVE)
[2017-12-18 18:04] LABS: LYME IGM NEGATIVE (NEGATIVE)
--- NOTE | 2017-12-19 02:14 | DS ---
HOSPITAL COURSE: The patient was admitted to the ER with unclear history. Nurse practitioner was concerned about chest pressure, history of uterine cancer, was not clear enough what the patient did have, but she did have some muscle pain, shoulder pain, general weakness. The patient was getting CT angio of the chest, CT abdomen and pelvis with IV contrast, and there was questionable dilated loops in the abdomen. Surgical consult has seen the patient. The patient was in room 5. She is tolerating diet, she has no obstructions, and she did have a history of molar , possible uterine choriocarcinoma from that, unclear, but she was getting chemotherapy at [facility] 2 years ago, she stayed for [address] in [facility], she also received chemo. At this time, the patient has negative CT abdomen and chest. She is doing well. She is comfortable. She has right shoulder pain. X-ray of the shoulder was negative. The patient also was seen by Oncology. Her beta hCG was negative, was normal, and the patient had also Lyme titer that was negative, RPR was negative, and influenza negative, and group B test set was negative. Her urine was negative, and toxicology, urine drug screen was negative. Her CBC was within normal range, white count 6.9, hemoglobin 13.3, hematocrit 38, platelets 271, and granulocytes was normal. She also had a chemistry, sodium 141, potassium 4.3, chloride 105, bicarbonate 23, BUN 12, creatinine 0.6, and her liver function test is normal. Her C-reactive protein 1.86. Her globulin-albumin ratio was normal, and lipase was normal. Beta hCG was less than 2.39. The patient was seen by Oncology consults, ID consultation with Dr. Durán, she received Rocephin times two 1 g and was supposed to get IV doxycycline; however, we have IV access problem, so we will give her p.o. doxycycline on discharge for 10 days and use ibuprofen plus Prilosec for her right shoulder pain. She is being monitored as outpatient in the office. DISCHARGE PHYSICAL EXAMINATION: VITAL SIGNS: She has temperature of 99.1, heart rate 87, blood pressure is 114/65, respirations 18, saturating 99% on room air. The patient did not complain of anything else. She is stable. She also had a chest x-ray which shows negative, no active pulmonary disease. She also had abdominal ultrasound, which shows mild hepatomegaly, possible fatty infiltrations, no evidence of cholelithiasis or cholecystitis, and she also has electrocardiogram which shows normal sinus rhythm, normal EKG. The patient is otherwise active, moving around, has no chest pain, no short of breath, and will be discharged home, to be followed up as outpatient. Discussed with the Gynecology sales consultant on the case. He will follow up on her as outpatient. Continue current management. DISCHARGE DIAGNOSES: 1. Generalized weakness, etiology unclear. The patient may need to be followed up as outpatient. Her blood work is negative. No anemia. Sed rate is 10, and needs further testing as outpatient. There is no evidence of any infections. 2. Possible pelvic infections or sexually transmitted disease. Serology is negative. Rest of the test will be done as outpatient. However, she received Rocephin for now, 1 g twice for two days, and she did have doxycycline. 3. Anxiety. 4. Right shoulder pain, possible muscle pain. 5. History of uterine cancer, possibly choriocarcinoma, possibly molar . She should follow up with a director of music therapy as outpatient. The patient is 22-year-old female. She needs to be followed up by director of music therapy on a regular basis. Discussed with the patient. She understands instructions. Dez Lambert MD
== END 2017-12-17 18:46 | disposition home or self-care (01) | DRG 390 ==
LOC: ED 09:53 → ERH 18:14 → 5RSO 19:51
PROVIDERS: ADMIT Internal Medicine; ATTEND Internal Medicine
DX: K56.609 Unspecified intestinal obstruction, unspecified as to partial versus complete obstruction (principal); N73.9 Female pelvic inflammatory disease, unspecified; R53.1 Weakness; F41.9 Anxiety disorder, unspecified; M25.511 Pain in right shoulder; K29.70 Gastritis, unspecified, without bleeding; M79.1 Myalgia; Z85.42 Personal history of malignant neoplasm of other parts of uterus; Z92.21 Personal history of antineoplastic chemotherapy

== ENCOUNTER 2017-12-24 11:09 | Emergency (ER) | payer BC ==
[2017-12-24 11:10] VITALS: BMI 23.3
[2017-12-24 11:30] VITALS: BP 111/71
[2017-12-24 12:31] VITALS: PULSE 88; RESP 18; TEMP 98
[2017-12-24 12:32] VITALS: O2SAT 98
--- NOTE | 2017-12-24 16:48 | ED PDOC ---
Arrival/HPI - General Chief Complaint: Abdominal Pain Time Seen by Provider: 12/24/17 11:42 Historian: Patient - History of Present Illness Narrative History of Present Illness (Text): 12/24/17 11:50 Gely Hawk is a 22 year old female who presents to the emergency department complaining of chronic abdominal pain for the last 3 months. Patient states that her pain has not changed during the time period. Patient notes that she was recently discharged last week from the hospital for the same complaining and was supposed to follow up with admitting physician but came to the emergency department instead. Patient is eating well and denies any nausea, vomiting, diarrhea, or any other complaints at this time. Time/Duration: Other (3 months) Symptom Onset: Gradual Activities at Onset: Light Context: Home Past Medical History - Provider Review Nursing Documentation Reviewed: Yes - Infectious Disease Hx of Infectious Diseases: None - Cardiac Hx Cardiac Disorders: No - Pulmonary Hx Respiratory Disorders: No - Neurological Hx Neurological Disorder: No - HEENT Hx HEENT Disorder: No - Renal Hx Renal Disorder: No - Endocrine/Metabolic Hx Endocrine Disorders: No - Hematological/Oncological Hx Blood Disorders: Yes Hx Cancer: Yes (UTERINE) - Integumentary Hx Dermatological Disorder: No - Musculoskeletal/Rheumatological Hx Musculoskeletal Disorders: No - Gastrointestinal Hx Gastrointestinal Disorders: Yes Other/Comment: ABD PAIN - Genitourinary/Gynecological Hx Genitourinary Disorders: No - Psychiatric Hx Psychophysiologic Disorder: No Hx Substance Use: No - Surgical History Hx Appendectomy: Yes - Anesthesia Hx Anesthesia: No Hx Anesthesia Reactions: No Hx Malignant Hyperthermia: No Family/Social History - Physician Review Nursing Documentation Reviewed: Yes Family/Social History: No Known Family HX Smoking Status: Never Smoked Hx Alcohol Use: Yes Hx Substance Use: No Allergies/Home Meds Allergies/Adverse Reactions: Allergies No Known Allergies Allergy (Verified 12/24/17 11:19) Review of Systems - Physician Review All systems were reviewed & negative as marked: Yes - Review of Systems Constitutional: absent: Fevers, Night Sweats Eyes: absent: Vision Changes ENT: absent: Hearing Changes Respiratory: absent: SOB Cardiovascular: absent: Chest Pain Gastrointestinal: Abdominal Pain Genitourinary Female: absent: Dysuria, Frequency Musculoskeletal: absent: Arthralgias Skin: absent: Rash, Pruritis Neurological: absent: Headache, Dizziness Endocrine: absent: Diaphoresis, Polyuria Hemo/Lymphatic: absent: Adenopathy Psychiatric: absent: Anxiety, Depression Physical Exam Vital Signs Reviewed: Yes Vital Signs Temp Pulse Resp BP Pulse Ox 12/24/17 12:31 98.0 F 88 18 98 12/24/17 11:20 98.9 F 94 H 16 111/71 98 Temperature: Afebrile Blood Pressure: Normal Pulse: Tachycardic Respiratory Rate: Normal Appearance: Positive for: Well-Appearing, Non-Toxic, Comfortable Pain Distress: None Mental Status: Positive for: Alert and Oriented X 3 - Systems Exam Head: Present: Atraumatic, Normocephalic Pupils: Present: PERRL Extroacular Muscles: Present: EOMI Conjunctiva: Present: Normal Mouth: Present: Moist Mucous Membranes Neck: Present: Normal Range of Motion Respiratory/Chest: Present: Clear to Auscultation, Good Air Exchange. No: Respiratory Distress, Accessory Muscle Use Cardiovascular: Present: Regular Rate and Rhythm, Normal S1, S2. No: Murmurs Abdomen: Present: Normal Bowel Sounds. No: Tenderness, Distention, Peritoneal Signs Back: Present: Normal Inspection Upper Extremity: Present: Normal Inspection. No: Cyanosis, Edema Lower Extremity: Present: Normal Inspection. No: Edema Neurological: Present: GCS=15, CN II-XII Intact, Speech Normal Skin: Present: Warm, Dry, Normal Color. No: Rashes Psychiatric: Present: Alert, Oriented x 3, Normal Insight, Normal Concentration Medical Decision Making ED Course and Treatment: 12/24/17 12:00 Impression: 22 year old female complaining of chronic abdominal pain for the last 3 months. Plan: -- Discharge Prior Visits: Notes and results from previous visits were reviewed. Patient was last seen in the emergency department on 12/15/17 for 2 month history of worsening chest pain , shortness of breath, ruq abdominal pain, sore throat and generalized body pain. Patient was admitted to hospitalist care for further evaluation. Progress Notes: - Scribe Statement The provider has reviewed the documentation as recorded by the Matt Griffith Provider Scribe Attestation: All medical record entries made by the Scribbalwinder were at my direction and personally dictated by me. I have reviewed the chart and agree that the record accurately reflects my personal performance of the history, physical exam, medical decision making, and the department course for this patient. I have also personally directed, reviewed, and agree with the discharge instructions and disposition. Disposition/Present on Arrival - Present on Arrival Any Indicators Present on Arrival: No History of DVT/PE: No History of Uncontrolled Diabetes: No Urinary Catheter: No History of Decub. Ulcer: No History Surgical Site Infection Following: None - Disposition Have Diagnosis and Disposition been Completed?: Yes Diagnosis: Chronic pain Disposition: HOME/ ROUTINE Disposition Time: 12:00 Condition: GOOD Discharge Instructions (ExitCare): Chronic Pain (DC) Print Language: SWEDISH Additional Instructions: Thank you for letting us take care of you today. The emergency medical care you received today was directed at your acute symptoms. If you were prescribed any medication, please fill it and take as directed. It may take several days for your symptoms to resolve. Return to the Emergency Department if your symptoms worsen, do not improve, or if you have any other problems. Please contact your doctor or call one of the physicians/clinics you have been referred to that are listed on the Patient Visit Information form that is included in your discharge packet. Bring any paperwork you were given at discharge with you along with any medications you are taking to your follow up visit. Our treatment cannot replace ongoing medical care by a primary care provider (PCP) outside of the emergency department. Thank you for allowing the [facility] team to be part of your care today. Please follow up with Dr. Lambert and the [facility] for follow up this week. Please call to make an appointment. Blaire por dejarnos atenderlo hoy. La atencin mdica de emergencia que recibi hoy estaba dirigida a beatriz sntomas agudos. Si le prescribieron algn medicamento, llnelo y tome segn las indicaciones. Beatriz sntomas pueden tardar varios wade en resolverse. Regrese al Departamento de Emergencia si beatriz s ntomas empeoran, no mejoran o si tiene algn otro problema. Comunquese con vazquez mdico o llame a geno de los mdicos / clnicas a los que corrales sido referido que figura en el formulario de Informacin de visita del paciente que se incluye en vazquez paquete de giacomo. Traiga todos los documentos que recibi al momento del giacomo junto con los medicamentos que est tomando en vazquez visita de seguimiento. Nuestro tratamiento no puede reemplazar la atencin mdica en curso por parte de un proveedor de atencin primaria (PCP) fuera del departamento de emergencias. Blaire por permitir que el equipo de [facility] sea parte de vazquez cuidado hoy. Por favor, delisa un seguimiento con el Dr. Lambert y la clnica [facility] para el seguimiento de esta semana. Por favor llame para hacer neal ismael. Referrals: [facility] [Outside] - Follow up with [facility] [Outside] - Follow up with primary Dez Lambert MD [Primary Care Provider] - Follow up with primary Forms: [employer] (Armenian)
== END 2017-12-24 12:32 | disposition home or self-care (01) ==
LOC: ED 11:09
DX: G89.29 Other chronic pain (principal)